=== PATIENT | female | born 1945 | race Caucasian/White ===

== ENCOUNTER 2016-07-08 12:13 | Emergency (ER) | payer MEDICARE, BC ==
[2016-07-08] MEDS ORDERED: Aspirin 81 MG Tab.Chew PO ONE (12:43)
--- NOTE | 2016-07-08 13:01 | CR ---
Chest: Portable view of the chest was obtained. Comparison: Previous chest x-ray of 03/12/13. Heart size appears within normal limits for portable technique. Tortuous thoracic aorta is seen. Lung markings are diffusely increased some of which appear to be chronic when compared to prior exam although findings have worsened from previous exam either due to worsening fibrosis or representing pulmonary vascular congestion or less likely bronchitis. Spinal fixation rods are seen. Surgical clips seen from prior cholecystectomy. Impression: 1. Increased central lung markings as described above. 2. Other incidental findings. Diagnostic code #3
--- NOTE | 2016-07-08 15:15 | EDM.PDOC ---
ED HISTORY OF PRESENT ILLNESS - General Chief Complaint: Chest Pain Stated Complaint: CHEST PAIN Time Seen by Provider: 07/08/16 12:24 Source of Information: Reports: Patient History Limitations: Reports: No limitations - History of Present Illness INITIAL COMMENTS - FREE TEXT/NARRATIVE: The patient presents with left sided chest pain that started early this morning at about 3:30am. The pain awoke her. It is worse with taking a deep breath. She has a history of COPD and she is on home oxygen. She recently had stents and a coil of aneurysms of the brain in [place]. Her heart was checked and she had a decreased EF of 45%. She denies fever, chill, cough, increased shortness of breath, abdominal pain, nausea or vomiting. She has no edema or pain in her legs. Timing/Duration: Reports: Hour(s): (since 3:30am) Severity: moderate Location, General: Reports: chest Quality: Reports: Sharp Improves with: Reports: None Worsens with: Reports: Breathing Associated Symptoms (General): Reports: chest pain. Denies: cough, fever/chills , nausea/vomiting, shortness of breath - Related Data Allergies/ADRs: Allergies Allergy/AdvReac Type Severity Reaction Status Date / Time morphine AdvReac Severe Anaphylactic Verified 06/15/16 14:38 Shock oxycodone AdvReac Intermediate Other Verified 06/15/16 14:38 baclofen AdvReac Hallucinati Verified 06/15/16 14:38 ons tizanidine [Tizanidine] AdvReac Hallucinati Verified 06/15/16 14:38 ons Home Meds: Home Meds Aspirin [Halfprin] 81 mg PO DAILY 12/05/14 [History] Cyclobenzaprine [Flexeril] 10 mg PO TID PRN 12/05/14 [History] Omeprazole 20 mg PO DAILY 12/05/14 [History] Pramipexole [Mirapex] 0.25 mg PO BEDTIME PRN 12/05/14 [History] Sulfamethoxazole/Trimethoprim [Bactrim Ds Tablet] 1 each PO DAILY 12/05/14 [ History] fluvoxaMINE [fluvoxaMINE Maleate] 100 mg PO DAILY 12/05/14 [History] Albuterol Sulfate [Proair Hfa] 2 puff INH DAILY PRN 07/08/16 [History] Carvedilol [Coreg] 3.125 mg PO DAILY 07/08/16 [History] Denosumab [Prolia] 60 mg SUBCUT ONETIME 07/08/16 [History] Lactobacillus Acidophilus [Acidophilus Lactobacilli] 1 tab PO DAILY 07/08/16 [ History] Ticagrelor [Brilinta] 90 mg PO BID 07/08/16 [History] atorvaSTATin [Lipitor] 40 mg PO DAILY 07/08/16 [History] Past Medical History HEENT History: Reports: Cataract, Impaired vision Other HEENT History: wears eyeglasses Cardiovascular History: Reports: Aneurysm, Heart Failure, High cholesterol, Hypertension Other Cardiovascular History: AAA Respiratory History: Reports: COPD, Pulmonary fibrosis Other Respiratory History: wears O2 at home, at bedtime. 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 Neurological History: Reports: Cerebral aneurysms Psychiatric History: Reports: Addiction, Anxiety, Depression - Past Surgical History Cardiovascular Surgical History: Reports: Other (see below) Other Cardiovascular Surgeries/Procedures: aortic aneurysm Female Surgical History: Reports: Hysterectomy, Salpingo-oophorectomy Neurological Surgical History: Reports: Other (see below) Other Neurological Surgeries/Procedures: aneurysm sx in may 2016 Other Musculoskeletal Surgeries/Procedures:: scoliosis Social & Family History - Family History Family Medical History: Noncontributory - Tobacco Use Smoking Status *Q: Former Smoker Years of Tobacco use: 35 Packs/Tins Daily: 0.3 Used Tobacco, but Quit: Yes Month Tobacco Last Used: 1 Second Hand Smoke Exposure: No - Caffeine Use Caffeine Use: Reports: Coffee, Tea - Alcohol Use Days Per Week of Alcohol Use: 0 - Recreational Drug Use Recreational Drug Use: No Drug Use in Last 12 Months: No - Living Situation & Occupation Living situation: Reports: Occupation: retired ED ROS GENERAL - Review of Systems Review Of Systems: See Below Constitutional: Reports: no symptoms HEENT: Reports: No symptoms Respiratory: Reports: no symptoms Cardiovascular: Reports: Chest pain Endocrine: Reports: no symptoms GI/Abdominal: Reports: No symptoms : Reports: no symptoms Musculoskeletal: Reports: no symptoms Skin: Reports: no symptoms ED EXAM, GENERAL - Physical Exam Exam: See Below Exam Limited By: No limitations General Appearance: alert, no apparent distress Ears: normal external exam Nose: normal inspection Head: atraumatic, normocephalic Neck: normal inspection Respiratory/Chest: no respiratory distress, lungs clear, normal breath sounds Cardiovascular: regular rate, rhythm, no edema, no murmur GI/Abdominal: soft, non tender, no organomegaly Back Exam: normal inspection Extremities: normal inspection EKG INTERPRETATION EKG Date: 07/08/16 Time: 12:19 Rhythm: NSR Rate (beats/min): 96 [place]: normal P-wave: present QRS: normal ST-T: normal QT: prolonged Course - Vital Signs Last Recorded V/S: Last Vital Signs Temp 98.3 F 07/08/16 12:17 Pulse 95 07/08/16 12:17 Resp 24 H 07/08/16 12:17 BP 114/58 L 07/08/16 12:17 Pulse Ox 96 07/08/16 12:17 - Orders/Labs/Meds Orders: Active Orders 24 hr Category Date Time Status EKG 12 Lead [EKG Documentation Completion] [RC] ROUTINE Care 07/08/16 12:30 Active TROPONIN I [CHEM] Stat Lab 07/08/16 15:09 Ordered Labs: Laboratory Tests 07/08/16 07/08/16 Range/Units 12:20 12:20 WBC 12.27 H (3.98-10.04) K/mm3 RBC 3.63 L (3.98-5.22) M/mm3 Hgb 10.6 L (11.2-15.7) gm/L Hct 34.1 (34.1-44.9) % MCV 93.9 (79.4-94.8) fl MCH 29.2 (25.6-32.2) pg MCHC 31.1 L (32.2-35.5) g/dl RDW Std Deviation 55.5 H (36.4-46.3) fL Plt Count 230 (182-369) K/mm3 MPV 9.6 (9.4-12.3) fl Neut % (Auto) 79.8 H (34.0-71.1) % Lymph % (Auto) 7.6 L (19.3-51.7) % [place] % (Auto) 12.1 (4.7-12.5) % Eos % (Auto) 0.2 L (0.7-5.8) Baso % (Auto) 0.1 (0.1-1.2) % Neut # 9.80 H (1.56-6.13) K/mm3 Lymph # 0.93 L (1.18-3.74) K/mm3 [place] # 1.48 H (0.24-0.36) K/mm3 Eos # 0.03 L (0.04-0.36) K/mm3 Baso # 0.01 (0.01-0.08) K/mm3 Manual Slide Review Abnormal smear Sodium 136 (136-145) mEq/L Potassium 3.7 (3.5-5.1) mEq/L Chloride 96 L (98-107) mEq/L Carbon Dioxide 30 (21-32) mEq/L Anion Gap 13.7 (5-15) BUN 24 H (7-18) mg/dL Creatinine 1.5 H (0.55-1.02) mg/dL Est Cr Clr Drug Dosing 25.07 mL/min Estimated GFR (MDRD) 34 (>60) mL/min BUN/Creatinine Ratio 16.0 (14-18) Glucose 128 H (80-115) mg/dL Calcium 9.7 (8.5-10.1) mg/dL Total Bilirubin 0.4 (0.2-1.0) mg/dL AST 25 (15-37) U/L ALT 19 (14-59) U/L Alkaline Phosphatase 83 (46-116) U/L Troponin I < 0.017 (0.00-0.056) ng/mL Total Protein 8.8 H (6.4-8.2) g/dl Albumin 3.5 (3.4-5.0) g/dl Globulin 5.3 gm/dL Albumin/Globulin Ratio 0.7 L (1-2) Meds: Medications Discontinued Medications Generic Name Dose Route Start Last Admin Trade Name Freq PRN Reason Stop Dose Admin Aspirin 324 mg 07/08/16 12:43 07/08/16 12:51 Aspirin PO 07/08/16 12:44 324 mg ONETIME ONE Administration - Re-Assessments/Exams Free Text/Narrative Re-Assessment/Exam: 07/08/16 15:16 I ordered an IV saline lock, oxygen, EKG, CXR and aspirin. Her EKG showed a NSR with no acute changes. Her CXR shows some early congestive changes. Her WBC was eleated at 12.27. Her Hgb was low at 10.6. Her creatinine was elevated at 1.5. She was 1.4 when she was here last. Her troponin is negative. The pain has improved. It is worse with deep breathing. I feel this is pleurisy. I will recheck a troponin. Departure - Departure Time of Disposition: 15:25 Disposition: Home, Self-Care 01 Condition: good Clinical Impression: Pleurisy Referrals: Aaron Street MD [Primary Care Provider] - 1 Week Forms: ED Department Discharge Additional Instructions: Take an antiinflammatory such as mortrin or aleve for the pain. Please return if you are worse. Follow up with Dr Street. - My Orders Last 24 Hours: My Active Orders 07/08/16 12:30 EKG 12 Lead [EKG Documentation Completion] [RC] ROUTINE 07/08/16 15:09 TROPONIN I [CHEM] Stat - Assessment/Plan Last 24 Hours: My Active Orders 07/08/16 12:30 EKG 12 Lead [EKG Documentation Completion] [RC] ROUTINE 07/08/16 15:09 TROPONIN I [CHEM] Stat
[2016-07-08 15:53] VITALS: BP 98/61
== END 2016-07-08 15:46 | disposition home or self-care (01) ==
LOC: JD.ED 12:13
DX: R09.1 Pleurisy (principal); I11.0 Hypertensive heart disease with heart failure; I50.9 Heart failure, unspecified; K21.9 Gastro-esophageal reflux disease without esophagitis; F41.9 Anxiety disorder, unspecified; Z98.1 Arthrodesis status; Z90.710 Acquired absence of both cervix and uterus; Z87.891 Personal history of nicotine dependence; Z79.82 Long term (current) use of aspirin; Z79.899 Other long term (current) drug therapy; Z88.5 Allergy status to narcotic agent; Z88.6 Allergy status to analgesic agent; Z88.8 Allergy status to other drugs, medicaments and biological substances
CPT/HCPCS: 36415; 71010; 80053; 84484; 85025; 93005; 99285; A9270; 99284